=== PATIENT | female | born 1975 | race African-American/Black ===

== ENCOUNTER 2018-05-25 07:35 | Emergency (ER) | payer OTHER ==
[~2018-05-25] VITALS: Ht 160 cm; Wt 77.1 kg
[2018-05-25 09:18] VITALS: BP 138/87
== END 2018-05-25 09:19 | disposition home or self-care (01) ==
LOC: ER 07:35
DX: J06.9 Acute upper respiratory infection, unspecified (principal)

== ENCOUNTER 2019-06-05 14:37 | Emergency (ER) | payer OTHER ==
[~2019-06-05] VITALS: Ht 160 cm; Wt 81.7 kg
[2019-06-05 14:40] VITALS: BP 169/107
[2019-06-05] MEDS ORDERED: IBUPROFEN 600600 M1 PO (15:15)
[2019-06-05] MEDS ORDERED: TESSALON PERLE100 MG PO (15:15)
[2019-06-05] MEDS ORDERED: ONDANSETRON HCL4 M2 PO (15:15)
== END 2019-06-05 15:32 | disposition home or self-care (01) ==
LOC: ER 14:37
DX: J10.1 Influenza due to other identified influenza virus with other respiratory manifestations (principal); I10 Essential (primary) hypertension

== ENCOUNTER 2020-09-28 21:54 | Emergency (ER) | payer OTHER ==
[~2020-09-28] VITALS: Ht 160 cm; Wt 81.7 kg
[~2020-09-28 21:54] MED LIST: IBUPROFEN 600600 M1 PO; ONDANSETRON HCL4 M2 PO; TESSALON PERLE100 MG PO
[2020-09-28] MEDS ORDERED: BENADRYL25 MG PO (22:13)
[2020-09-28] MEDS ORDERED: PREDNISONE 20 M20 MG PO (23:03)
[2020-09-28 23:13] VITALS: BP 159/95
== END 2020-09-28 23:14 | disposition home or self-care (01) ==
LOC: ER 21:54
DX: R06.02 Shortness of breath (principal); T78.40XA Allergy, unspecified, initial encounter; E11.9 Type 2 diabetes mellitus without complications; I10 Essential (primary) hypertension; Y92.89 Other specified places as the place of occurrence of the external cause